=== PATIENT | female | born 2000 ===

== ENCOUNTER 2018-07-05 20:08 | Emergency (ER) | payer SELFPAY ==
[2018-07-05] MEDS ORDERED: ONDANSETRON HCL INJ/PF 4 MG/2 ML SDV IV ONE (21:53)
[2018-07-05] MEDS ORDERED: NORMAL SALINE 1000 ML 1,000 ML IV ONE (21:53)
--- NOTE | 2018-07-05 21:55 | ER Document Report ---
ED Medical Screen (RME) - General Chief Complaint: Nausea/Vomiting Stated Complaint: UNABLE TO KEEP FOOD DOWN Time Seen by Provider: 07/05/18 21:50 Notes: Patient is a 18-year-old female presenting to the emergency department for vomiting for the last 5 days. Patient states she has vomited 5 times each day for the last 5 days denying any blood. Patient also states one episode of diarrhea on Monday. Otherwise bowel movements have been "normal" patient denies fever. Patient states she intermittently has epigastric pain and periumbilical abdominal pain when she tries to eat something. Patient denies dysuria or vaginal discharge. Past medical history: None Medications: None Allergies: None Physical exam: Mild epigastric abdominal pain upon palpation, Delarosa sign negative, no McBurney's point tenderness. No CVA tenderness bilaterally. I have greeted and performed a rapid initial assessment of this patient. A comprehensive ED assessment and evaluation of the patient, analysis of test results and completion of the medical decision making process will be conducted by additional ED providers. TRAVEL OUTSIDE OF THE [place] IN LAST 30 DAYS: No Physical Exam - Vital signs Vitals: Temp Pulse Resp BP Pulse Ox 98.7 F 83 18 119/76 97 07/05/18 20:27 07/05/18 20:27 07/05/18 20:27 07/05/18 20:27 07/05/18 20:27 Course - Vital Signs Vital signs: Temp Pulse Resp BP Pulse Ox 98.7 F 83 18 119/76 97 07/05/18 20:27 07/05/18 20:27 07/05/18 20:27 07/05/18 20:27 07/05/18 20:27 Doctor's Discharge - Discharge Referrals: [facility]AL[facility],NO [Primary Care Provider] - Follow up as needed
[2018-07-05 22:51] LABS: ABSOLUTE BASOPHILS # (AUTO) 0.1 10^3/uL (0.0-0.2); ABSOLUTE EOSINOPHILS # (AUTO) 0.1 10^3/uL (0.0-0.6); ABSOLUTE LYMPHOCYTES (AUTO) 4.3 10^3/uL (0.5-4.7); ABSOLUTE MONOCYTES (AUTO) 1.3 10^3/uL (0.1-1.4); ABSOLUTE NEUT (AUTO) 8.4 10^3/uL (1.7-8.2); BASOPHILS % (AUTO) 0.5 % (0-2); EOSINOPHILS % (AUTO) 0.5 % (0-6); HEMATOCRIT 45.9 % (36.0-47.0); LYMPHOCYTES % (AUTO) 30.1 % (13-45); MEAN CORPUSCULAR HEMOGLOBIN 29.1 pg (27.0-33.4); MEAN CORPUSCULAR HGB CONC 34.9 g/dL (32.0-36.0); MEAN CORPUSCULAR VOLUME 84 fl (80-97); MONOCYTES % (AUTO) 9.5 % (3-13); PLATELET COUNT 462 10^3/uL (150-450); RED BLOOD COUNT 5.49 10^6/uL (3.72-5.28); RED CELL DISTRIBUTION WIDTH 12.6 % (11.5-14.0); SEGMENTED NEUTROPHILS % (AUTO) 59.4 % (42-78); TOTAL CELLS COUNTED % (AUTO) 100 %; WHITE BLOOD COUNT 14.2 10^3/uL (4.0-10.5)
[2018-07-05 23:19] LABS: ALANINE AMINOTRANSFERASE 85 U/L (9-52); ALBUMIN 5.4 g/dL (3.5-5.0); ALKALINE PHOSPHATASE 91 U/L (38-126); ANION GAP 18 (5-19); ASPARTATE AMINO TRANSFERASE 78 U/L (14-36); BILIRUBIN,DIRECT 0.4 mg/dL (0.0-0.4); BILIRUBIN,TOTAL 0.9 mg/dL (0.2-1.3); BLOOD UREA NITROGEN 11 mg/dL (7-20); CALCIUM 10.5 mg/dL (8.4-10.2); CARBON DIOXIDE 29 mmol/L (22-30); CHLORIDE 93 mmol/L (98-107); GLUCOSE 100 mg/dL (75-110); LIPASE 103.7 U/L (23-300); POTASSIUM 3.7 mmol/L (3.6-5.0); SODIUM 139.7 mmol/L (137-145); TOTAL PROTEIN 9.6 g/dL (6.3-8.2)
[2018-07-05 23:45] LABS: APPEARANCE,URINE CLOUDY; BILIRUBIN,URINE NEGATIVE (NEGATIVE); COLOR,URINE AMBER; GLUCOSE, URINE NEGATIVE (NEGATIVE); KETONES,URINE NEGATIVE (NEGATIVE); LEUKOCYTE ESTERASE,URINE TRACE (NEGATIVE); NITRITE,URINE NEGATIVE (NEGATIVE); PROTEIN,URINE 30 mg/dL (NEGATIVE); URINE SPECIFIC GRAVITY 1.029
[2018-07-06] MEDS ORDERED: MAG HYDROX/AL HYDROX/SIMETH SUSP 30 ML UDCUP PO ONE (00:15)
[2018-07-06] MEDS ORDERED: METOCLOPRAMIDE HCL ORAL SOLN 10 MG/10 ML UDCUP PO ONE (00:15)
[2018-07-06] MEDS ORDERED: LIDOCAINE 2% VISCOUS SOLN 20 ML UDCUP PO ONE (00:15)
--- NOTE | 2018-07-06 00:28 | ER Document Report ---
ED General - General Mode of Arrival: Ambulatory Information source: Patient TRAVEL OUTSIDE OF THE [place] IN LAST 30 DAYS: No <DELVIN KOCH - Last Filed: 07/06/18 00:31> <TEJINDER CRUZ - Last Filed: 07/09/18 10:53> - General Chief Complaint: Nausea/Vomiting Stated Complaint: UNABLE TO KEEP FOOD DOWN Time Seen by Provider: 07/05/18 21:50 Notes: Patient is a 18-year-old female presenting to the emergency department complaining of nausea, vomiting and poor food and fluid intake onset 5 days ago. Patient states that she has been unable to keep any food down further stating after every meal or fluid intake she would vomit approximately a few hours later. She states that her nausea would be exacerbated after eating. Patient states that she has had similar symptoms in the past and was diagnosed with gastritis. Patient denies any hematemesis, diarrhea, sick contacts, recent camping trips or travel. Patient is currently prescribed Zosyn and Bentyl. (DELVIN KOCH) - Related Data Allergies/Adverse Reactions: No Known Drug Allergies Allergy (Verified 07/05/18 22:00) Past Medical History - General Information source: Patient - Social History Smoking Status: Never Smoker Cigarette use (# per day): No Chew tobacco use (# tins/day): No Smoking Education Provided: No Frequency of alcohol use: None Family History: Reviewed & Not Pertinent Patient has suicidal ideation: No Patient has homicidal ideation: No GI Medical History: Reports: Hx Gastritis <DELVIN KOCH - Last Filed: 07/06/18 00:31> Review of Systems - Review of Systems Constitutional: No symptoms reported EENT: No symptoms reported Cardiovascular: No symptoms reported Respiratory: No symptoms reported Gastrointestinal: See HPI, Nausea, Vomiting, Poor appetite, Poor fluid intake Genitourinary: No symptoms reported Female Genitourinary: No symptoms reported Musculoskeletal: No symptoms reported Skin: No symptoms reported Hematologic/Lymphatic: No symptoms reported Neurological/Psychological: No symptoms reported -: Yes All other systems reviewed and negative <DELVIN KOCH - Last Filed: 07/06/18 00:31> Physical Exam <DELVIN KOCH - Last Filed: 07/06/18 00:31> <TEJINDER CRUZ - Last Filed: 07/09/18 10:53> - Vital signs Vitals: Temp Pulse Resp BP Pulse Ox 98.7 F 83 18 119/76 97 07/05/18 20:27 07/05/18 20:27 07/05/18 20:27 07/05/18 20:27 07/05/18 20:27 - Notes Notes: GENERAL: Alert, interacts well. No acute distress. HEAD: Normocephalic, atraumatic. EYES: Pupils equal, round, and reactive to light. Extraocular movements intact. ENT: Oral mucosa dry, tongue midline. NECK: Full range of motion. Supple. Trachea midline. LUNGS: Clear to auscultation bilaterally, no wheezes, rales, or rhonchi. No respiratory distress. HEART: Regular rate and rhythm. No murmurs, gallops, or rubs. ABDOMEN: Soft, non-tender. Non-distended. Bowel sounds present in all 4 quadrants. EXTREMITIES: Moves all 4 extremities spontaneously. NEUROLOGICAL: Alert and oriented x3. Normal speech. PSYCH: Normal affect, normal mood. SKIN: Warm, dry, normal turgor. No rashes or lesions noted. (DELVIN KOCH) Course - Laboratory Result Diagrams: 07/05/18 22:25 07/05/18 22:25 <DELVIN KOCH - Last Filed: 07/06/18 00:31> - Laboratory Result Diagrams: 07/05/18 22:25 07/05/18 22:25 <TEJINDER CRUZ - Last Filed: 07/09/18 10:53> - Re-evaluation Re-evalutation: 07/06/18 02:33 Patient shows mildly elevated liver enzymes ultrasound was performed revealing no acute gallbladder pathology. We will treat patient symptoms with Zofran as well as provide Zantac. Community care referral provided for reevaluation in 1 week if symptoms are not improving or sooner in the emergency department if worsening of symptoms or any other concerns 07/06/18 02:40 Upon reevaluation patient was resting comfortably in no distress and had initially had one bout of vomitus when she came in but no vomit after that initial encounter (TEJINDER CRUZ) - Vital Signs Vital signs: Temp Pulse Resp BP Pulse Ox 97.8 F 85 16 128/82 H 97 07/06/18 03:28 07/06/18 03:28 07/06/18 03:28 07/06/18 03:28 07/06/18 03:28 - Laboratory Laboratory results interpreted by me: 07/05/18 07/05/18 07/05/18 22:25 22:25 22:25 WBC 14.2 H RBC 5.49 H Hgb 16.0 H Plt Count 462 H Absolute Neutrophils 8.4 H Chloride 93 L Calcium 10.5 H AST 78 H ALT 85 H Total Protein 9.6 H Albumin 5.4 H Urine Protein 30 H Urine Blood MODERATE H Urine Urobilinogen 4.0 H Ur Leukocyte Esterase TRACE H Discharge <DELVIN KOCH - Last Filed: 07/06/18 00:31> <TEJINDER CRUZ - Last Filed: 07/09/18 10:53> - Discharge Clinical Impression: Nausea & vomiting Qualifiers: Vomiting type: unspecified Vomiting Intractability: non-intractable Qualified Code(s): R11.2 - Nausea with vomiting, unspecified Condition: Good Disposition: HOME, SELF-CARE Instructions: Antinausea Medication ([facility]), Vomiting ([facility]) Prescriptions: Ondansetron [Zofran Odt 4 mg Tablet] 1 tab PO ASDIR PRN #15 tab.rapdis PRN Reason: For Nausea/Vomiting Ranitidine HCl [Zantac] 150 mg PO BID #30 tablet Forms: Return to Work Referrals: [facility] [Outside] - Follow up in 3-5 days (If symptoms are not improving) Scribe Attestation: 07/09/18 10:53 I personally performed the services described in the documentation, reviewed and edited the documentation which was dictated to the scribe in my presence, and it accurately records my words and actions. (TEJINDER CRUZ) Scribe Documentation - Scribe Written by Scribe:: Robert Florez, 07/06/2018 00:28 acting as scribe for :: Vito <DELVIN KOCH - Last Filed: 07/06/18 00:31>
--- NOTE | 2018-07-06 01:26 | RADIOLOGY REPORT (SQ) ---
EXAM DESCRIPTION: US ABDOMEN LIMITED COMPLETED DATE/TME: 07/06/2018 00:31 CLINICAL HISTORY: 18 years, Female, N/V, epigastric discomfort COMPARISON: None. TECHNIQUE: Transverse and longitudinal sonographic images of the right upper quadrant LIMITATIONS: None. FINDINGS: The liver is homogenous in echotexture without focal lesion. No gallstones or gallbladder wall thickening. Negative sonographic Delarosa sign. The CBD measures 3.5 mm in diameter. No free fluid in the right upper quadrant. The visualized portions of the abdominal aorta, and right kidney are unremarkable. IMPRESSION: Unremarkable exam 2010 [employer]- All Rights Reserved
[2018-07-06 03:30] VITALS: BP 128/82
== END 2018-07-06 03:28 | disposition home or self-care (01) ==
LOC: ER 20:08
DX: R11.2 Nausea with vomiting, unspecified (principal)
CPT/HCPCS: 99284; 96361; 96374; 36415; 83690; 85025; 81025; 80053; 81001; 76705; J3490; J2405; J7030